=== PATIENT | female | born 1950 | race Two or more races ===

== ENCOUNTER → 2021-06-23 | Outpatient (CLI) | payer BC | END | disposition home or self-care (01) | LOC: XYW 09:44 | PROVIDERS: ATTEND Internal Medicine | DX: I08.2 Rheumatic disorders of both aortic and tricuspid valves (principal); I25.10 Atherosclerotic heart disease of native coronary artery without angina pectoris | CPT/HCPCS: 93306 ==

== ENCOUNTER → 2021-06-27 | Outpatient (CLI) | payer BC ==
[2021-06-27 09:35] LABS: Basophils # (auto) 0.1 10 ^3/uL (0-0.2); Eosinophils # (auto) 0.3 10 ^3/uL (0-0.8); Eosinophils % (auto) 3.9 % (0.0-7.0); Hematocrit 39.7 % (36.0-46.0); Lymphocytes # (auto) 2.1 10 ^3/uL (0.4-5.4); Lymphocytes % (auto) 30.9 % (10.0-50.0); Mean Corpuscular Hemoglobin 28.2 pg (28.0-32.0); Mean Corpuscular Hgb Conc. 32.8 g/dL (32.0-36.0); Mean Corpuscular Volume 86.1 fL (80.0-100.0); Monocytes # (auto) 0.3 10 ^3/uL (0-1.3); Monocytes % (auto) 4.8 % (0.0-12.0); Neutrophils % (auto) 59.4 % (37.0-80.0); Nucleated Red Blood Cells % 0.1 %; Red Blood Cells 4.61 10^6/uL (4.0-5.20); White Blood Cell 6.8 10^3/uL (4.4-10.8)
[2021-06-27 09:49] LABS: Albumin 3.4 g/dL (3.4-5.0); Potassium 3.8 mmol/L (3.5-5.1)
[2021-06-27 09:54] LABS: BUN/Creatinine Ratio 14.9; Bilirubin, Total 0.3 mg/dL (0.2-1.0); Total Protein 7.4 g/dL (6.4-8.2)
[2021-06-27 10:18] LABS: Urine Bacteria NONE SEEN /hpf (None Seen); Urine Blood Negative /uL (Negative); Urine Specific Gravity 1.019 (1.001-1.035); Urine WBC 1 /hpf (0 - 5)
== END | disposition home or self-care (01) ==
LOC: LAB 09:08
PROVIDERS: ATTEND Internal Medicine
DX: Z00.00 Encounter for general adult medical examination without abnormal findings (principal); I25.10 Atherosclerotic heart disease of native coronary artery without angina pectoris
CPT/HCPCS: 36415; 80053; 80061; 81001; 83036; 83880; 85025

== ENCOUNTER → 2021-07-03 | Outpatient (CLI) | payer BC | END | disposition home or self-care (01) | LOC: LAB 09:47 | PROVIDERS: ATTEND Internal Medicine | DX: Z00.00 Encounter for general adult medical examination without abnormal findings (principal); I25.10 Atherosclerotic heart disease of native coronary artery without angina pectoris | CPT/HCPCS: 82270 ==

== ENCOUNTER → 2021-08-14 | Outpatient (CLI) | payer BC ==
[2021-08-14 11:04] LABS: Albumin 3.5 g/dL (3.4-5.0)
[2021-08-14 11:10] LABS: Alanine Aminotransferase 17 U/L (13-56); Alkaline Phosphatase 81 U/L (45-117); Aspartate Aminotransferase 13 U/L (15-37); Bilirubin, Direct < 0.1 mg/dL (0-0.2); Bilirubin, Total 0.2 mg/dL (0.2-1.0); Total Protein 7.8 g/dL (6.4-8.2)
== END | disposition home or self-care (01) ==
LOC: LAB 10:26
PROVIDERS: ATTEND Internal Medicine
DX: E11.9 Type 2 diabetes mellitus without complications (principal); E78.5 Hyperlipidemia, unspecified
CPT/HCPCS: 36415; 80076

== ENCOUNTER → 2021-09-17 | Outpatient (CLI) | payer BC ==
[~2021-09-17] VITALS: Ht 160 cm; Wt 107.5 kg
[~2021-09-17] MED LIST: ADENOSINE 90 MG in GIVE UN-DILUTED 0 ML IV STA
== END | disposition home or self-care (01) ==
LOC: XYW 08:10
PROVIDERS: ATTEND Internal Medicine
DX: I25.118 Atherosclerotic heart disease of native coronary artery with other forms of angina pectoris (principal); I10 Essential (primary) hypertension; E78.5 Hyperlipidemia, unspecified; E78.00 Pure hypercholesterolemia, unspecified; I25.10 Atherosclerotic heart disease of native coronary artery without angina pectoris
CPT/HCPCS: 78452; 93017; A9500; J0153

== ENCOUNTER 2021-11-05 12:49 | Day surgery (SDC) | payer BC, OTHER ==
[2021-11-04 10:17] LABS: Basophils # (auto) 0.1 10 ^3/uL (0-0.2); Eosinophils # (auto) 0.2 10 ^3/uL (0-0.8); Eosinophils % (auto) 2.4 % (0.0-7.0); Hematocrit 36.1 % (36.0-46.0); Hemoglobin 12.1 g/dL (12.2-16.2); Lymphocytes # (auto) 2.5 10 ^3/uL (0.4-5.4); Lymphocytes % (auto) 28.4 % (10.0-50.0); Mean Corpuscular Hemoglobin 28.8 pg (28.0-32.0); Mean Corpuscular Hgb Conc. 33.7 g/dL (32.0-36.0); Mean Corpuscular Volume 85.5 fL (80.0-100.0); Monocytes # (auto) 0.6 10 ^3/uL (0-1.3); Monocytes % (auto) 6.7 % (0.0-12.0); Neutrophils # (auto) 5.5 10 ^3/uL (1.6-8.6); Neutrophils % (auto) 61.5 % (37.0-80.0); Nucleated Red Blood Cells % 0.1 %; Red Blood Cells 4.22 10^6/uL (4.0-5.20); Red Cell Distribution Width 15.2 % (11.8-14.3); White Blood Cell 8.9 10^3/uL (4.4-10.8)
[2021-11-04 10:59] LABS: INR 1.02 (0.9-1.15); Partial Thromboplastin Time 30.2 sec (23.6-33.0)
[2021-11-04 11:30] LABS: Albumin 3.7 g/dL (3.4-5.0); Calcium 9.2 mg/dL (8.5-10.1); Potassium 4.2 mmol/L (3.5-5.1)
[2021-11-04 11:33] LABS: BUN/Creatinine Ratio 14.3; Bilirubin, Total 0.4 mg/dL (0.2-1.0); Total Protein 8.1 g/dL (6.4-8.2)
[~2021-11-05] VITALS: Ht 160 cm; Wt 108.0 kg
[~2021-11-05 12:49] MED LIST changes: -ADENOSINE 90 MG in GIVE UN-DILUTED 0 ML IV STA; +AML5T PO; +ASPI1TAB20 PO; +ISOS1TAB28 PO; +LATA0.0019 OP; +LOSA25TA38 PO; +METF-370 PO; +METO-289 PO; +ROSU40TA PO; +TRIA37.56 PO
[2021-11-05] MEDS ORDERED: LIDOCAINE VISCOUS 2% 15ML UD ONE (13:47)
[2021-11-05] MEDS ORDERED: MIDAZOLAM HCL 5 MG/ML-1ML VIAL ONE (13:47)
[2021-11-05] MEDS ORDERED: diphenhdrAMINE HCL 50 MG/1 ML VL ONE (13:47)
[2021-11-05] MEDS ORDERED: fentaNYL CITRATE 100 MCG/2 ML VL ONE (13:47)
[2021-11-05 16:15] VITALS: BP 148/81
== END 2021-11-05 16:30 | disposition home or self-care (01) ==
LOC: GI 12:49
PROVIDERS: ATTEND Internal Medicine Gastroenterology
DX: R10.13 Epigastric pain (principal); K21.00 Gastro-esophageal reflux disease with esophagitis, without bleeding; K44.9 Diaphragmatic hernia without obstruction or gangrene; K22.10 Ulcer of esophagus without bleeding; K29.50 Unspecified chronic gastritis without bleeding; K63.89 Other specified diseases of intestine; I10 Essential (primary) hypertension; E11.9 Type 2 diabetes mellitus without complications; E78.5 Hyperlipidemia, unspecified; I25.10 Atherosclerotic heart disease of native coronary artery without angina pectoris; Z98.890 Other specified postprocedural states; Z79.899 Other long term (current) drug therapy; Z20.822 Contact with and (suspected) exposure to COVID-19
CPT/HCPCS: 36415; 43239; 43450; 80053; 82962; 85025; 85610; 85730; 88305; 88312; 88342; J1200; J2250; J3010; J7030; U0003; 99152

== ENCOUNTER → 2021-12-23 | Outpatient (CLI) | payer BC ==
[2021-12-23 10:21] LABS: Basophils # (auto) 0.1 10 ^3/uL (0-0.2); Basophils % (auto) 0.7 % (0.0-2.0); Eosinophils # (auto) 0.2 10 ^3/uL (0-0.8); Eosinophils % (auto) 1.9 % (0.0-7.0); Hematocrit 38.7 % (36.0-46.0); Hemoglobin 12.2 g/dL (12.2-16.2); INR 0.96 (0.9-1.15); Lymphocytes # (auto) 2.7 10 ^3/uL (0.4-5.4); Lymphocytes % (auto) 32.4 % (10.0-50.0); Mean Corpuscular Hemoglobin 26.6 pg (28.0-32.0); Mean Corpuscular Hgb Conc. 31.5 g/dL (32.0-36.0); Mean Corpuscular Volume 84.7 fL (80.0-100.0); Monocytes # (auto) 0.6 10 ^3/uL (0-1.3); Monocytes % (auto) 6.7 % (0.0-12.0); Neutrophils # (auto) 4.9 10 ^3/uL (1.6-8.6); Neutrophils % (auto) 58.3 % (37.0-80.0); Nucleated Red Blood Cells % 0.1 %; Partial Thromboplastin Time 30.9 sec (24.6-33.4); Red Blood Cells 4.57 10^6/uL (4.0-5.20); Red Cell Distribution Width 15.5 % (11.8-14.3); White Blood Cell 8.3 10^3/uL (4.4-10.8)
[2021-12-23 11:01] LABS: Potassium 3.9 mmol/L (3.5-5.1)
[2021-12-23 11:17] LABS: Albumin 3.6 g/dL (3.4-5.0); BUN/Creatinine Ratio 17.8; Bilirubin, Total 0.3 mg/dL (0.2-1.0); Calcium 9.5 mg/dL (8.5-10.1); Total Protein 8.2 g/dL (6.4-8.2)
== END | disposition home or self-care (01) ==
LOC: LAB 09:56
PROVIDERS: ATTEND Internal Medicine
DX: I10 Essential (primary) hypertension (principal); I25.118 Atherosclerotic heart disease of native coronary artery with other forms of angina pectoris
CPT/HCPCS: 36415; 80053; 85025; 85610; 85730

== ENCOUNTER 2021-12-24 07:04 | Day surgery (SDC) | payer BC ==
[2021-12-24] VITALS (8 sets, daily range): BP systolic 128–177; BP diastolic 63–90
[~2021-12-24] VITALS: Ht 160 cm; Wt 110.2 kg
[~2021-12-24 07:04] MED LIST changes: -ASPI1TAB20 PO
[2021-12-24] MEDS ORDERED: ANGIOMAX 250 MG VIAL IV ONE (11:26)
[2021-12-24] MEDS ORDERED: fentaNYL CITRATE 100 MCG/2 ML VL ONE (11:26)
[2021-12-24] MEDS ORDERED: HEPARIN SODIUM (PORCINE) 5000 UNITS/ML 1ML VIAL ONE (11:26)
[2021-12-24] MEDS ORDERED: VERAPAMIL 2.5MG/ML INJ 2ML VIAL IV ONE (11:26)
[2021-12-24] MEDS ORDERED: MIDAZOLAM HCL 2MG/2ML 2ml VIAL (1mg/ml) ONE (11:27)
[2021-12-24] MEDS ORDERED: SODIUM CHL 0.9% 0 ML ONE (11:27)
== END 2021-12-24 14:50 | disposition home or self-care (01) ==
LOC: CATH 07:04
PROVIDERS: ATTEND Internal Medicine
DX: I25.10 Atherosclerotic heart disease of native coronary artery without angina pectoris (principal); I10 Essential (primary) hypertension; E78.5 Hyperlipidemia, unspecified; I25.2 Old myocardial infarction; Z95.5 Presence of coronary angioplasty implant and graft; Z82.49 Family history of ischemic heart disease and other diseases of the circulatory system; E11.9 Type 2 diabetes mellitus without complications; Z96.653 Presence of artificial knee joint, bilateral; Z20.822 Contact with and (suspected) exposure to COVID-19
CPT/HCPCS: 93458; C1769; C1887; C1894; J1644; J2250; J3010; J7030; U0003; 99152

== ENCOUNTER → 2022-02-25 | Outpatient (CLI) | payer BC | END | disposition home or self-care (01) | LOC: LAB 10:25 | PROVIDERS: ATTEND Internal Medicine | DX: E11.9 Type 2 diabetes mellitus without complications (principal); E78.5 Hyperlipidemia, unspecified | CPT/HCPCS: 36415; 81025; 83036; 85652 ==

== ENCOUNTER → 2022-03-31 | Outpatient (CLI) | payer BC ==
[2022-03-31 10:51] LABS: Basophils # (auto) 0 10 ^3/uL (0-0.2); Basophils % (auto) 0.5 % (0.0-2.0); Eosinophils # (auto) 0.2 10 ^3/uL (0-0.8); Eosinophils % (auto) 2.1 % (0.0-7.0); Hematocrit 38.7 % (36.0-46.0); Hemoglobin 12.5 g/dL (12.2-16.2); Lymphocytes # (auto) 2.3 10 ^3/uL (0.4-5.4); Lymphocytes % (auto) 26.8 % (10.0-50.0); Mean Corpuscular Hemoglobin 27.1 pg (28.0-32.0); Mean Corpuscular Hgb Conc. 32.2 g/dL (32.0-36.0); Mean Corpuscular Volume 84.1 fL (80.0-100.0); Monocytes # (auto) 0.6 10 ^3/uL (0-1.3); Monocytes % (auto) 6.6 % (0.0-12.0); Neutrophils # (auto) 5.4 10 ^3/uL (1.6-8.6); Red Cell Distribution Width 17.2 % (11.8-14.3); White Blood Cell 8.5 10^3/uL (4.4-10.8)
[2022-03-31 12:02] LABS: Albumin 3.7 g/dL (3.4-5.0); BUN/Creatinine Ratio 14.3; Bilirubin, Total 0.3 mg/dL (0.2-1.0); Potassium 3.5 mmol/L (3.5-5.1); Total Protein 8.1 g/dL (6.4-8.2)
== END | disposition home or self-care (01) ==
LOC: LAB 10:38
PROVIDERS: ATTEND Internal Medicine
DX: R06.02 Shortness of breath (principal); R05.9 Cough, unspecified
CPT/HCPCS: 36415; 80053; 83880; 84484; 85025

== ENCOUNTER → 2022-06-10 | Outpatient (CLI) | payer BC | END | disposition home or self-care (01) | LOC: LAB 15:39 | PROVIDERS: ATTEND Internal Medicine | DX: E11.9 Type 2 diabetes mellitus without complications (principal) | CPT/HCPCS: 36415; 82043; 83036 ==

== ENCOUNTER → 2022-08-12 | Outpatient (CLI) | payer BC | END | disposition home or self-care (01) | LOC: LAB 10:29 | PROVIDERS: ATTEND Internal Medicine | DX: E11.9 Type 2 diabetes mellitus without complications (principal); M25.511 Pain in right shoulder | CPT/HCPCS: 36415; 83036; 84550; 85652 ==